=== PATIENT | female | born 1965 | race Caucasian/White ===

== ENCOUNTER 2017-11-02 13:29 | Emergency (ER) | payer OTHER ==
[2017-11-02] MEDS: HYDROCODONE/APAP (5/325) TAB PO (13:54)
== END 2017-11-02 16:21 | disposition home or self-care (01) ==
LOC: FTE 13:29
DX: S52.571A Other intraarticular fracture of lower end of right radius, initial encounter for closed fracture (principal); S89.92XA Unspecified injury of left lower leg, initial encounter; S59.291A Other physeal fracture of lower end of radius, right arm, initial encounter for closed fracture; I10 Essential (primary) hypertension; W01.0XXA Fall on same level from slipping, tripping and stumbling without subsequent striking against object, initial encounter; Y92.009 Unspecified place in unspecified non-institutional (private) residence as the place of occurrence of the external cause
CPT/HCPCS: 29125; 73080-RT; 73090-RT; 73110-RT; 73130-RT; 73590; 73610; 73630-LT; 99284-25

== ENCOUNTER 2018-12-12 23:34 | Emergency (ER) | payer OTHER ==
[2018-12-13] MEDS: KETOROLAC 30 MG INJ IM (00:22)
[2018-12-13] MEDS: OXYCODONE/ACETAMINOPHEN (5/325) TAB PO (00:22)
== END 2018-12-13 01:15 | disposition home or self-care (01) ==
LOC: E/R 23:34
DX: I10 Essential (primary) hypertension (principal)
CPT/HCPCS: 93005; 93971; 96372; 99285-25